=== PATIENT | female | born 1960 | race African-American/Black ===

== ENCOUNTER → 2021-06-18 | Outpatient (CLI) | payer OTHER ==
[2014-05-13 22:02] VITALS: BP 134/84
--- NOTE | 2021-06-18 12:13 | RAD ---
EXAM: AP and lateral views of the left knee DATE: 06/18/2021 10:01 AM INDICATION: Reason: LEFT KNEE PAIN, GIVES OUT WHEN WALKING / Spl. Instructions: / History: COMPARISON: No Prior FINDINGS: No acute fracture or dislocation. No joint effusion. Joint spaces are preserved without significant degenerative/proliferative change. IMPRESSION: No acute fracture or dislocation. Electronically signed by: Jibmo Vasquez MD (06/18/2021 12:11 PM) [email or web address]
--- NOTE | 2021-06-18 12:14 | RAD ---
EXAM: AP and lateral views of the lumbar spine DATE: 06/18/2021 10:01 AM INDICATION: Reason: LOW BACK AND KNEE PAIN / Spl. Instructions: / History: COMPARISON: No Prior FINDINGS: Moderate L4-5 disc height loss. Mild facet degenerative changes are seen. Mild L5-S1 disc height loss . Vertebral body heights are preserved. No acute fracture. No spondylolisthesis. IMPRESSION: 1. Multilevel spondylosis as above 2. Negative acute fracture or subluxation. Electronically signed by: Jimbo Vasquez MD (06/18/2021 12:12 PM) [email or web address]
== END ==
LOC: RAD 09:22
PROVIDERS: ATTEND Physical Medicine & Rehabilitation Hospice and Palliative Medicine
DX: M47.816 Spondylosis without myelopathy or radiculopathy, lumbar region (principal); M25.562 Pain in left knee
CPT/HCPCS: 72100; 73560